=== PATIENT | male | born 2000 | race Caucasian/White ===

== ENCOUNTER 2021-07-13 22:34 | Emergency (ER) | payer MEDICAID ==
[~2021-07-13] VITALS: Ht 180.3 cm; Wt 90.7 kg
[2021-07-13 22:34] VITALS: BP_SYST 150
[~2021-07-13 22:34] MED LIST: ACET325T
--- NOTE | 2021-07-14 | NUR ---
Patient to ER bed 7 to gown for evaluation. Side rails up.
--- NOTE | 2021-07-14 00:20 | NUR ---
Dr. Duarte bedside for pt eval
--- NOTE | 2021-07-14 00:28 | NUR ---
PT BIB FAMILY TO ED C/O BRIGHT BLOODY STOOL X 2 DAYS WITH CONSTIPATION, OTHERWISE HEALTHY VSS NO S/S OF ACUTE DISTRESS RESTING ON GURNEY RAILS UP
[2021-07-14] MEDS ORDERED: DOCU-144 PO (01:29)
[2021-07-14 01:47] VITALS: BP_SYST 150
--- NOTE | 2021-07-14 01:47 | NUR ---
Patient given written and verbal discharge instructions and verbalizes understanding. ER MD discussed with patient the results and treatment provided. Patient in stable condition. ID arm band removed. Rx of Colace given. Patient educated on pain management and to follow up with PMD. Pain Scale 0/10 Opportunity for questions provided and answered. Medication side effect fact sheet provided.
== END 2021-07-14 01:47 | disposition home or self-care (01) ==
LOC: SED 22:34
DX: K62.5 Hemorrhage of anus and rectum (principal); K59.00 Constipation, unspecified; Z79.899 Other long term (current) drug therapy
CPT/HCPCS: 99282